=== PATIENT | male | born 1945 | race Caucasian/White ===

== ENCOUNTER 2016-09-10 05:45 | Observation (INO) | payer MEDICARE ==
[~2016-09-10] VITALS: Ht 177.8 cm; Wt 117.9 kg
[2016-09-10 07:58] LABS: HEMOGLOBIN 13.2 gm/dl (14.0-17.5); RED BLOOD COUNT 3.66 M/UL (4.20-5.50); WHITE BLOOD COUNT 5.7 K/UL (4.5-11.0)
[2016-09-10 08:32] LABS: BUN/CREATININE RATIO 15 (0-10)
[2016-09-10] MEDS ORDERED: ASPIRIN EC81 MG PO (12:12)
[2016-09-10] MEDS ORDERED: FERROUS SULFAT325 MG PO (12:12)
[2016-09-10] MEDS ORDERED: VITAMIN B-121000 MC3 SL (12:13)
[2016-09-10] MEDS ORDERED: LORTAB 7.5-3251 EACH PO (12:14)
[2016-09-10] MEDS ORDERED: PROTONIX40 MG PO (12:15)
[2016-09-10] MEDS ORDERED: LASIX80 MG PO (12:15)
[2016-09-10] MEDS ORDERED: TENORMIN 25 MG25 MG PO (12:15)
[2016-09-10] MEDS ORDERED: SPIRONOLACTONE25 MG PO (12:16)
[2016-09-10] MEDS ORDERED: SILVADENE20 GM TOP (12:19)
[2016-09-11 04:10] LABS: HEMOGLOBIN 12.7 gm/dl (14.0-17.5); RED BLOOD COUNT 3.5 M/UL (4.20-5.50); WHITE BLOOD COUNT 6.6 K/UL (4.5-11.0)
[2016-09-11 04:15] LABS: BUN/CREATININE RATIO 21 (0-10)
[2016-09-11] MEDS ORDERED: XIFAXAN 550 MG550 MG PO (12:45)
[2016-09-11] MEDS ORDERED: LACTULOSE20 GM/30 M PO (12:47)
== END 2016-09-11 11:15 | disposition home or self-care (01) ==
LOC: EDBD 05:45 → ER1 05:45 → ZEROF 09:45 → MED SURG 4 09:45
PROVIDERS: Physician Assistant; ADMIT Internal Medicine
DX: K72.90 Hepatic failure, unspecified without coma (principal); F10.129 Alcohol abuse with intoxication, unspecified; K74.60 Unspecified cirrhosis of liver; I35.0 Nonrheumatic aortic (valve) stenosis; D69.6 Thrombocytopenia, unspecified; E87.6 Hypokalemia; E83.42 Hypomagnesemia; K21.9 Gastro-esophageal reflux disease without esophagitis; R60.0 Localized edema; N18.9 Chronic kidney disease, unspecified; R01.1 Cardiac murmur, unspecified; D53.9 Nutritional anemia, unspecified; E66.9 Obesity, unspecified; I50.9 Heart failure, unspecified; I45.81 Long QT syndrome; Z87.891 Personal history of nicotine dependence; Z91.14 Patient's other noncompliance with medication regimen; Z79.82 Long term (current) use of aspirin; Z79.891 Long term (current) use of opiate analgesic; Z79.899 Other long term (current) drug therapy; Z87.11 Personal history of peptic ulcer disease
CPT/HCPCS: ECHO; 36415; 70450; 71010; 80053; 81001; 82140; 82550; 82553; 82607; 82746; 83605; 83690; 83735; 83874; 83880; 84100; 84484; 85025; 87040; 87086; 93005; 93306; 96360; 99285; G0378; G0480